=== PATIENT | female | born 2005 | race Caucasian/White ===

== ENCOUNTER 2025-02-14 17:52 | Emergency (ER) | payer OTHER, SELFPAY ==
[2025-02-14 18:08] VITALS: BP 133/85
[2025-02-14 18:29] LABS: Urine Character Clear (Clear)
[2025-02-14 18:33] LABS: Hematocrit 36.6 % (37.0-47.0); Hemoglobin 12.6 g/dL (12.0-16.0); Mean Corp Hgb Conc. 34.4 g/dL (33.0-37.0); Mean Corpuscular Volume 89.9 fL (81.0-99.0); Nucleated Red Blood Cells % 0 %; Platelet Count 344 10^3/uL (130-400); Red Cell Dist. Width 12.6 % (11.5-14.5)
[2025-02-14 18:43] LABS: HCG, Serum Qualitative Screen Negative
[2025-02-14 18:49] LABS: AST (SGOT) 24 U/L (14-36); Albumin 5.0 g/dl (3.5-5.0); Alkaline Phosphatase 74 U/L (38-126); Blood Urea Nitrogen 8 mg/dl (7-17); Calcium 9.7 mg/dl (8.4-10.2); Carbon Dioxide 27 mmol/L (22-30); Chloride 101 mmol/L (98-107); Glucose 89 mg/dl (70-99); Lipase 63 U/L (23-300); Sodium 136 mmol/L (135-145); Total Protein 8.7 g/dl (6.3-8.2); eGFR > 60.00
[2025-02-14 18:58] LABS: ALT (SGPT) 12 U/L (0-35); Potassium 3.9 mmol/L (3.5-5.1)
[2025-02-14 19:05] LABS: Urine Squamous Cell 16-20 /LPF (Few)
[2025-02-14 19:07] LABS: Urine Red Blood Cell 0-2 /HPF (0-2); Urine White Cell 40-50 /HPF (0-5)
--- NOTE | 2025-02-14 21:03 | ED.GENMED ---
History of Present Illness
General
Chief Complaint: Flank Pain
Source: patient
Exam Limitations: none
Time Seen by Provider: 02/14/25 20:51
Nursing documentation reviewed up to this point in time: agreed with
History of Present Illness
History of Present Illness:
Patient to the emergency department with complaint of right flank pain. Symptoms started approximately 3 days ago and continue to worsen. She denies fever but feels chilled. She denies nausea vomiting or diarrhea. No prior history of same. He
is brought to the emergency department by her mother for evaluation.
Past History
Past History
ED Past Medical History: Other (PMH anorexia)
Review of Systems
Review of Systems
Allergies reviewed?: Yes
All Other Systems: ROS reviewed and negative except as documented in HPI and ROS
Constitutional: Reports no symptoms
EENT: Reports no symptoms
Respiratory: Reports no symptoms
Cardiac: Reports no symptoms
ABD/GI: Reports no symptoms
: Reports flank pain (right flank pain)
Musculoskeletal: Reports no symptoms
Skin: Reports no symptoms
Neurological: Reports no symptoms
Psychiatric: Reports no symptoms
Phy Exam
General Physical Exam
General Presentation: well appearing and mild distress
General age: appears stated age
General Skin: warm and dry
General Habitus: normal
General Mental: alert
Pulmonary Exam
Pulmonary Exam: lungs clear
Gastrointestinal Exam
Gastrointestinal Exam: normal bowel sounds, soft, no organomegaly, no pulsatile mass, non distended and no cva tenderness
Palpation: generalized: Minimal tenderness
Musculoskeletal Exam
Musculoskeletal Exam: full ROM and neuro vasc intact
Skin Exam
Skin Exam: normal color, warm/dry and no rash
Psychiatric Exam
Psychiatric Exam: normal mood/affect
Course
Orders/Labs/Results
Orders:
Orders
02/14/25 18:12
Test Result ONCE
02/14/25 18:21
Complete Blood Count/With Diff Urgent
Comprehensive Metabolic Panel Urgent
HCG, Serum Qualitative Screen Urgent
Lipase Urgent
Urinalysis Reflex To Culture Urgent
Date Specimen was Collected: 02/14/25
Time Specimen was Collected: 18:12
Urine Microscopic Reflex Cult Urgent
Chlamydia/GC by PCR Urgent
ION Source: Urine
Specimen Description:
Source:: URINE
Date Specimen was Collected: 02/14/25
Time Specimen was Collected: 23:00
Comment: add on placed to previous urine
Urine Culture Urgent
ION Source: U
Specimen Description:
Date Specimen was Collected: 02/14/25
Time Specimen was Collected: 18:12
02/14/25 21:02
CT Abd/pel Without Iv Or Oral Urgent
Comment:
Reason For Exam: right flank pain
02/14/25 22:08
Pelvis (Non Obstetric) US [US Pelvis Only (non-obstetric)] Urgent
Comment:
Reason For Exam: bilateral pelvic pain
02/14/25 22:59
Add On - Microbiology Urgent
Comments:: Chlamydia/GC by PCR urine
Tests Added?: Chlamydia/GC by PCR urine
02/14/25 23:43
Phenazopyridine HCl [Pyridium] 200 mg PO NOW STA
02/14/25 23:46
Ciprofloxacin HCl [Cipro] 250 mg PO NOW STA
Abnormal Lab Results
02/14/25
18:21
WBC 12.0 H 10^3/uL
(4.8-10.8)
RBC 4.07 L 10^6/uL
(4.20-5.40)
Hct 36.6 L %
(37.0-47.0)
Absolute Neuts (auto) 8.7 H 10^3/uL
(1.4-6.5)
Absolute Monos (auto) 0.8 H 10^3/uL
(0.1-0.6)
Total Protein 8.7 H g/dl
(6.3-8.2)
Urine Ketones 1+ A
(Negative)
Ur Occult Blood Reflex 3+ A
(Negative)
Leukocyte Esterase Rfl 2+ A
(Negative)
Urine WBC (Reflex) 40-50 A /HPF
(0-5)
Urine Bacteria (Reflex) Moderate A
(Negative)
Urine Albumin (Reflex) 1+ A
(Neg - Trace)
02/14/25 18:21
02/14/25 18:21
Vital Signs
Initial and Last Documented VS:
Initial Vital Signs
Temp Pulse Resp BP Pulse Ox
98.5 F 76 20 133/85 99
02/14/25 18:08 02/14/25 18:08 02/14/25 18:08 02/14/25 18:08 02/14/25 18:08
Last Documented Vital Signs
Temp Pulse Resp BP Pulse Ox
98.5 F 62 17 92/61 100
02/14/25 18:08 02/14/25 23:08 02/14/25 23:08 02/14/25 23:08 02/14/25 23:08
*Radiology
Radiology exam reviewed: radiology read reviewed
*Pulse Oximetry
SaO2: 99
Oxygen Mode of Delivery: Room air
Patient hypoxic: no
*Critical Care Note
Total Time (30-74mins, 75-104mins- exclusive of procedures): Not Applicable
Update Note
Update Note:
Patient to the emergency department with complaint of right flank pain radiating to the right lower quadrant. Symptoms started approximately 3 days ago and continue to worsen. She denies any fever or chills. Positive nausea, no vomiting or
diarrhea. On exam her abdomen is soft tenderness to the right side of her abdomen and radiated around to her back. There is no guarding or rebound. She was sent for a noncontrast CT of abdomen and pelvis. No significant abnormality was noted.
Mild diffuse stool burden appendix was normal. Discussed finding with patient and mother. Patient now states that the pain is really bilateral pelvic pain. Pelvic ultrasound was then completed. Results reviewed, no concerning findings. Doppler
flow present to both ovaries. Discussed these findings with patient and mother. Labs reviewed. WBC of 12.0 noted. CMP unremarkable. UA with +3 blood +2 leukocytes 40-50 WBCs and moderate bacteria. Concerning for UTI. She was placed on Cipro
250 mg twice daily for 5 days. Requested she follow closely with PCP and have urinalysis repeated once course of antibiotic is completed. Urine culture also sent for GC chlamydia, results are pending. Will discharge home with parents, close
follow-up with PCP. She was given instructions on signs and symptoms to return to the emergency department and she is agreeable to this plan.
ED Attending Note
-
Portions of this chart may have been created with voice recognition software.� Occasional wrong word or��sound alike� substitutions may have occurred due to the inherent limitations of voice recognition software.
Discharge Plan
Departure
Patient Disposition: Home (Routine Discharge)
Date of Disposition: 02/14/25
Time of Disposition: 23:44
Patient with high blood pressure during this ER visit?: No
Condition: Good
Covid-19: Not Applicable
Discharge Problem:
UTI (urinary tract infection)
Instructions: Urinary tract infection in adults - ED (DC)
Prescriptions:
New
ciprofloxacin HCl 250 mg tablet
250 mg PO BID Qty: 10 0RF
phenazopyridine [Pyridium] 200 mg tablet
200 mg PO TID PRN (Reason: Pain) Qty: 6 0RF
Referrals:
NONE,* [Family Provider, Internal Medicine]
Activity Restrictions/Additional Instructions:
Follow-up with your family doctor. Return to the emergency department for fever/chills, increasing pain, vomiting, or for any further concerns.
Interventions
Interventions:
*Risk Screen - Suicide Last Done: 02/14/25 18:08
*General Assessment Last Done: 02/14/25 18:08
*Neglect/Abuse Screening Last Done: 02/14/25 18:08
*ED COVID-19 Vaccine History Last Done: 02/14/25 21:43
*ED Influenza Vaccine History Last Done: 02/14/25 21:43
[facility] Fall Risk Assessment Tool Last Done: 02/14/25 23:08
*Nursing Disposition Last Done: 02/15/25 00:03
[facility]-Vhbxwljdkn Assessment Last Done: 02/14/25 21:43
ED-Female Genitourinary Assessment Last Done: 02/14/25 21:43
Discharge Date and Time
Discharge Date/Time: 02/15/25 00:06
Print Language: OMANI
[2025-02-14 21:43] VITALS: BP 100/61
[2025-02-14 23:08] VITALS: BP 92/61
[2025-02-14] MEDS: CIPRO 250 MG PO (23:56)
== END 2025-02-15 00:06 | disposition home or self-care (01) ==
LOC: EMR 17:52
PROVIDERS: Emergency Medicine; EMERGENCY PHYSICIAN Student in an Organized Health Care Education/Training Program
DX: N39.0 Urinary tract infection, site not specified (principal)
CPT/HCPCS: 99284; 74176; 76856; 80053; 81003; 81015; 83690; 84703; 85025; 87086; 87491; 87591